=== PATIENT | male | born 1945 | race African-American/Black ===

== ENCOUNTER 2017-06-07 11:59 | Emergency (ER) | payer MEDICARE, MEDICAID ==
[~2017-06-07] VITALS: Ht 177.8 cm; Wt 110.0 kg
[~2017-06-07 11:59] MED LIST: ASPI-1158; BECL8.7A6; CARV3.1242; CLOP75TA15; FURO-152; LISI-186; METF500T; RANI-467; SIMV5TAB2; VIC; [UNRECOGNIZED DRUG - OTHER]
[2017-06-07] MEDS ORDERED: SODIUM CHLORIDE 0.9% 500 ML IV ONE (13:22)
[2017-06-07 17:58] LABS: CLARITY URINE TURBID (CLEAR); COLOR URINE DARK YELLOW (YELLOW); GLUCOSE URINE NEGATIVE (NEGATIVE); KETONES URINE TRACE (NEGATIVE); LEUKOCYTE ESTERASE URINE 3+ (NEGATIVE); NITRITE URINE NEGATIVE (NEGATIVE); OCCULT BLOOD URINE 1+ (NEGATIVE); PROTEIN URINE 1+ (NEGATIVE); SPECIFIC GRAVITY URINE 1.028 (1.005-1.030)
[2017-06-07 18:19] VITALS: BP 86/52
== END 2017-06-07 18:42 | disposition left against medical advice (07) ==
LOC: ER 12:01
DX: I95.9 Hypotension, unspecified (principal); R53.1 Weakness; E11.9 Type 2 diabetes mellitus without complications; J45.909 Unspecified asthma, uncomplicated; I11.0 Hypertensive heart disease with heart failure; Z95.1 Presence of aortocoronary bypass graft; Z95.0 Presence of cardiac pacemaker; Z86.73 Personal history of transient ischemic attack (TIA), and cerebral infarction without residual deficits; Z79.84 Long term (current) use of oral hypoglycemic drugs; Z79.82 Long term (current) use of aspirin
CPT/HCPCS: 51701; 71010; 81001; 93005; 96360; 99285; J7030

== ENCOUNTER 2021-05-06 14:43 | Emergency (ER) | payer MEDICARE, MEDICAID ==
[~2021-05-06] VITALS: Ht 180.3 cm; Wt 93.0 kg
[~2021-05-06 14:43] MED LIST changes: -ASPI-1158; +ASPI-1406; -RANI-467; +RANI-645
[2021-05-06 16:17] LABS: BASOPHILS % 0.8 % (0.0-2.0); HEMATOCRIT. 46.9 % (42.0-52.0); HEMOGLOBIN. 15.2 g/dL (14.0-18.0); MEAN CORPUSCULAR HEMOGLOBIN 27.1 pg (28.0-32.0); MEAN CORPUSCULAR VOLUME 83.4 fL (80.0-94.0); MEAN PLATELET VOLUME 9.5 fl (7.4-10.4); MONOCYTES % 7.5 % (2.0-8.0); NEUTROPHILS % 64.7 % (40.0-76.0); PLATELET 236 x1000/uL (130-400); RED BLOOD CELL COUNT 5.62 mill/uL (4.7-6.1); RED CELL DISTRIBUTION WIDTH 15.6 % (11.6-14.6)
[2021-05-06 16:23] LABS: CHLORIDE 103 mEq/L (98-107)
[2021-05-06 19:20] VITALS: BP 146/104
== END 2021-05-06 19:46 | disposition left against medical advice (07) ==
LOC: ER 14:43
DX: E11.22 Type 2 diabetes mellitus with diabetic chronic kidney disease (principal); I12.9 Hypertensive chronic kidney disease with stage 1 through stage 4 chronic kidney disease, or unspecified chronic kidney disease; N18.9 Chronic kidney disease, unspecified; J45.909 Unspecified asthma, uncomplicated; Z86.73 Personal history of transient ischemic attack (TIA), and cerebral infarction without residual deficits; Z79.899 Other long term (current) drug therapy
CPT/HCPCS: 36415; 74018; 80053; 85025; 93005; 99285

== ENCOUNTER 2021-10-14 18:32 | Inpatient (IN) | payer MEDICARE, MEDICAID ==
[~2021-10-14] VITALS: Ht 172.7 cm; Wt 91.2 kg
[2021-10-14] MEDS ORDERED: SODIUM CHLORIDE 0.9% 1000ML BAG (SEPSIS BOLUS) IV ONE (19:00)
[2021-10-14] MEDS ORDERED: PIPERACILLIN/TAZ 3.375G PREMIX 50 ML IV ONE (19:00)
[2021-10-14] MEDS ORDERED: VANCOMYCIN 1 G PREMIX 200 ML IV ONE (19:00)
[2021-10-14 20:02] LABS: BASOPHILS % 0.7 % (0.0-2.0); EOSINOPHILS % 0.7 % (0.0-5.0); HEMATOCRIT. 50.7 % (42.0-52.0); HEMOGLOBIN. 16.1 g/dL (14.0-18.0); LYMPHOCYTES % 19.4 % (20.0-50.0); MEAN CORPUSCULAR HEMOGLOBIN 26.2 pg (28.0-32.0); MEAN CORPUSCULAR VOLUME 82.6 fL (80.0-94.0); MEAN PLATELET VOLUME 10.1 fl (7.4-10.4); MONOCYTES % 8.4 % (2.0-8.0); NEUTROPHILS % 70.8 % (40.0-76.0); PLATELET 174 x1000/uL (130-400); RED BLOOD CELL COUNT 6.14 mill/uL (4.7-6.1); RED CELL DISTRIBUTION WIDTH 16.6 % (11.6-14.6)
[2021-10-14 20:03] LABS: CHLORIDE 98 mEq/L (98-107)
[2021-10-14] MEDS ORDERED: INSULIN REGULAR (HUMULIN R) 300UNITS/3ML VIAL SUBCUT ONE (21:45)
[2021-10-14] MEDS ORDERED: DOCUSATE SODIUM 100MG CAPSULE PO PRN (22:00)
[2021-10-14] MEDS ORDERED: ACETAMINOPHEN 325MG TABLET PO PRN (22:00)
[2021-10-14] MEDS ORDERED: ONDANSETRON HCL 4MG/2ML INJ IV PRN (22:00)
[2021-10-14] MEDS ORDERED: DEXTROSE 50% WATER 50ML SYRINGE IV PRN (22:00)
[2021-10-14] MEDS ORDERED: ASPIRIN 81MG EC TABLET PO ONE (22:00)
[2021-10-14] MEDS ORDERED: TRAMADOL 50MG TABLET PO PRN (22:15)
[2021-10-14 23:17] LABS: CLARITY URINE CLEAR (CLEAR); COLOR URINE YELLOW (YELLOW); KETONES URINE 1+ (NEGATIVE); LEUKOCYTE ESTERASE URINE NEGATIVE (NEGATIVE); NITRITE URINE NEGATIVE (NEGATIVE); OCCULT BLOOD URINE NEGATIVE (NEGATIVE); PH URINE 5.5 (4.5-8.0); PROTEIN URINE NEGATIVE (NEGATIVE); SPECIFIC GRAVITY URINE 1.035 (1.005-1.030); UROBILINOGEN URINE 0.2 E.U./dL (0.2-1.0)
[2021-10-15] MEDS: BLOOD SUGAR DIAGNOSTIC STRIP TEST SCH ×3 (06:59→21:00)
[2021-10-15] MEDS ORDERED: ASPIRIN 81MG TABLET PO ONE (09:00)
[2021-10-15] MEDS: CLOPIDOGREL 75MG TABLET PO SCH (09:00)
[2021-10-15] MEDS ORDERED: ENOXAPARIN 30MG/0.3ML SYR SUBCUT SCH (09:00)
[2021-10-15 10:45] LABS: BASOPHILS % 1.2 % (0.0-2.0); EOSINOPHILS % 1.5 % (0.0-5.0); HEMATOCRIT. 47.2 % (42.0-52.0); HEMOGLOBIN. 15.3 g/dL (14.0-18.0); LYMPHOCYTES % 25.9 % (20.0-50.0); MEAN CORPUSCULAR HEMOGLOBIN 26.9 pg (28.0-32.0); MEAN CORPUSCULAR VOLUME 82.6 fL (80.0-94.0); MEAN PLATELET VOLUME 10.1 fl (7.4-10.4); NEUTROPHILS % 62.4 % (40.0-76.0); PLATELET 180 x1000/uL (130-400); RED BLOOD CELL COUNT 5.71 mill/uL (4.7-6.1); RED CELL DISTRIBUTION WIDTH 16.6 % (11.6-14.6)
[2021-10-15 10:54] LABS: CHLORIDE 105 mEq/L (98-107)
[2021-10-15 11:04] LABS: LDL CHOLESTEROL 119 mg/dL (5-100)
[2021-10-15 11:07] LABS: HDL CHOLESTEROL 41 mg/dL (40-59)
[2021-10-15 16:10] VITALS: BP 118/57
[2021-10-15] MEDS: INSULIN LISPRO 100 UNITS/ML SUBCUT SCH ×2 (17:23→22:11)
[2021-10-15 20:00] VITALS: BP 110/71
[2021-10-15] MEDS ORDERED: APIXABAN 5 MG TABLET PO SCH (20:00)
[2021-10-15] MEDS: APIXABAN 5 MG TABLET PO SCH (22:10)
[2021-10-15] MEDS: ATORVASTATIN CALCIUM 20MG TABLET PO SCH (22:10)
[2021-10-15] MEDS: INSULIN GLARGINE UD 100 UNITS/ML SYR SUBCUT SCH (22:18)
[2021-10-16] VITALS: BP_SYST 115; BP_SYST 117; BP_SYST 130; BP_DIAS 56; BP_DIAS 57
[2021-10-16 04:00] VITALS: BP_SYST 105; BP_SYST 106; BP_SYST 116; BP_DIAS 63; BP_DIAS 66; BP_DIAS 67
[2021-10-16] MEDS: INSULIN LISPRO 100 UNITS/ML SUBCUT SCH ×4 (06:22→21:01)
[2021-10-16] MEDS: BLOOD SUGAR DIAGNOSTIC STRIP TEST SCH ×4 (06:22→21:01)
[2021-10-16 08:00] VITALS: BP 138/82
[2021-10-16 08:11] LABS: BASOPHILS % 0.5 % (0.0-2.0); EOSINOPHILS % 1.9 % (0.0-5.0); HEMATOCRIT. 46.5 % (42.0-52.0); HEMOGLOBIN. 15.3 g/dL (14.0-18.0); LYMPHOCYTES % 36.1 % (20.0-50.0); MEAN CORPUSCULAR HEMOGLOBIN 27.4 pg (28.0-32.0); MEAN CORPUSCULAR VOLUME 83.3 fL (80.0-94.0); MEAN PLATELET VOLUME 10.7 fl (7.4-10.4); MONOCYTES % 9.6 % (2.0-8.0); NEUTROPHILS % 51.9 % (40.0-76.0); PLATELET 177 x1000/uL (130-400); RED BLOOD CELL COUNT 5.59 mill/uL (4.7-6.1); RED CELL DISTRIBUTION WIDTH 16.6 % (11.6-14.6)
[2021-10-16 08:14] LABS: CHLORIDE 106 mEq/L (98-107)
[2021-10-16] MEDS: CLOPIDOGREL 75MG TABLET PO SCH (09:24)
[2021-10-16] MEDS: APIXABAN 5 MG TABLET PO SCH ×2 (09:24→17:19)
[2021-10-16 12:00] VITALS: BP 134/78
[2021-10-16 16:00] VITALS: BP 122/66
[2021-10-16 17:43] LABS: CREATINE KINASE 55 IU/L (39-308)
[2021-10-16 17:44] LABS: CREATINE KINASE MB FRACTION < 1.0 ng/mL (0.5-3.6)
[2021-10-16 20:00] VITALS: BP 121/61
[2021-10-16] MEDS: CARVEDILOL 3.125 MG TABLET PO SCH (21:00)
[2021-10-16] MEDS: ATORVASTATIN CALCIUM 20MG TABLET PO SCH (21:00)
[2021-10-16] MEDS: INSULIN GLARGINE UD 100 UNITS/ML SYR SUBCUT SCH (21:35)
[2021-10-17] VITALS: BP 109/50
[2021-10-17 04:00] VITALS: BP 95/50
[2021-10-17] MEDS: BLOOD SUGAR DIAGNOSTIC STRIP TEST SCH ×4 (06:10→21:35)
[2021-10-17] MEDS: INSULIN LISPRO 100 UNITS/ML SUBCUT SCH ×4 (06:11→21:34)
[2021-10-17] MEDS: METFORMIN HCL 500MG TABLET PO SCH ×2 (06:21→17:03)
[2021-10-17 07:48] LABS: METHADONE URINE SCREEN NEGATIVE (NEGATIVE); OPIATES URINE SCREEN NEGATIVE (NEGATIVE); PHENCYCLIDINE URINE SCREEN NEGATIVE (NEGATIVE)
[2021-10-17 07:49] LABS: *AMPHETAMINES SCREEN URINE NEGATIVE (NEGATIVE); *BARBITURATES SCREEN URINE NEGATIVE (NEGATIVE); *BENZODIAZEPINES SCREEN URINE NEGATIVE (NEGATIVE); *COCAINE SCREEN URINE NEGATIVE (NEGATIVE)
[2021-10-17 08:00] VITALS: BP 113/67
[2021-10-17] MEDS ORDERED: NITR0.4T SL (08:00)
[2021-10-17] MEDS ORDERED: AMIO100T4 PO (08:00)
[2021-10-17] MEDS ORDERED: DICL100G31 TP (08:00)
[2021-10-17] MEDS ORDERED: FLOV44 INH (08:00)
[2021-10-17] MEDS ORDERED: CHOL2000 PO (08:00)
[2021-10-17] MEDS ORDERED: ATROV INH (08:00)
[2021-10-17] MEDS ORDERED: ALBU18HF2 IH (08:00)
[2021-10-17] MEDS ORDERED: LISI-186 PO (08:00)
[2021-10-17] MEDS ORDERED: FURO-151 PO (08:00)
[2021-10-17] MEDS ORDERED: AMA4 PO (08:00)
[2021-10-17] MEDS ORDERED: ATOR80TA PO (08:00)
[2021-10-17] MEDS ORDERED: HYDR-4135 PO (08:00)
[2021-10-17] MEDS ORDERED: COR25 PO (08:00)
[2021-10-17] MEDS ORDERED: DOCU-138 PO (08:00)
[2021-10-17] MEDS ORDERED: ASPI-1406 PO (08:00)
[2021-10-17] MEDS ORDERED: XAR15 PO (08:00)
[2021-10-17] MEDS ORDERED: TRAM50TA3 PO (08:00)
[2021-10-17 08:02] LABS: CANNABINOID URINE SCREEN PRESUMTIVE POSITIVE (NEGATIVE)
[2021-10-17] MEDS: CLOPIDOGREL 75MG TABLET PO SCH (09:08)
[2021-10-17] MEDS: APIXABAN 5 MG TABLET PO SCH ×2 (09:09→17:03)
[2021-10-17] MEDS: CARVEDILOL 3.125 MG TABLET PO SCH ×2 (09:09→21:00)
[2021-10-17 12:00] VITALS: BP 110/61
[2021-10-17 16:00] VITALS: BP_SYST 110; BP_SYST 111; BP_DIAS 61; BP_DIAS 62
[2021-10-17 17:22] LABS: BASOPHILS % 0.7 % (0.0-2.0); EOSINOPHILS % 1.8 % (0.0-5.0); HEMATOCRIT. 47.9 % (42.0-52.0); HEMOGLOBIN. 15.1 g/dL (14.0-18.0); LYMPHOCYTES % 44.7 % (20.0-50.0); MEAN CORPUSCULAR HEMOGLOBIN 26.9 pg (28.0-32.0); MEAN CORPUSCULAR VOLUME 85.4 fL (80.0-94.0); MONOCYTES % 8.8 % (2.0-8.0); PLATELET 172 x1000/uL (130-400); RED BLOOD CELL COUNT 5.61 mill/uL (4.7-6.1); RED CELL DISTRIBUTION WIDTH 17.8 % (11.6-14.6)
[2021-10-17] MEDS ORDERED: DIGOXIN 125MCG TABLET PO SCH (18:00)
[2021-10-17 20:00] VITALS: BP 90/66
[2021-10-17] MEDS: ATORVASTATIN CALCIUM 20MG TABLET PO SCH (21:33)
[2021-10-17] MEDS: INSULIN GLARGINE UD 100 UNITS/ML SYR SUBCUT SCH (21:34)
[2021-10-18] VITALS: BP 90/55
[2021-10-18 04:00] VITALS: BP 110/59
[2021-10-18] MEDS: BLOOD SUGAR DIAGNOSTIC STRIP TEST SCH ×2 (06:27→11:20)
[2021-10-18] MEDS: INSULIN LISPRO 100 UNITS/ML SUBCUT SCH ×2 (06:27→11:27)
[2021-10-18] MEDS: METFORMIN HCL 500MG TABLET PO SCH (06:28)
[2021-10-18 08:00] VITALS: BP 128/75
[2021-10-18] MEDS: CARVEDILOL 3.125 MG TABLET PO SCH (09:48)
[2021-10-18] MEDS: APIXABAN 5 MG TABLET PO SCH (09:48)
[2021-10-18] MEDS: CLOPIDOGREL 75MG TABLET PO SCH (09:48)
[2021-10-18 12:00] VITALS: BP 111/61
[2021-10-18] MEDS ORDERED: COR3 PO (12:57)
[2021-10-18] MEDS ORDERED: METF-414 PO (12:57)
[2021-10-18] MEDS ORDERED: DIGO-26 PO (12:57)
[2021-10-18] MEDS ORDERED: EMPA10TA MT (12:57)
[2021-10-18 16:00] VITALS: BP 115/62
[2021-10-18 16:14] VITALS: BP 128/75
== END 2021-10-18 17:13 | disposition home or self-care (01) | DRG 314 ==
LOC: ER 18:32 → MICUSO 21:53 → EDBEDREQSVC 21:55 → EDBEDREQTM 21:55 → EDBEDREQ 21:55 → 8WST 10-15 16:10
PROVIDERS: ADMIT Internal Medicine; ATTEND Internal Medicine
DX: I95.9 Hypotension, unspecified (principal); N17.0 Acute kidney failure with tubular necrosis; I48.92 Unspecified atrial flutter; I42.9 Cardiomyopathy, unspecified; I25.10 Atherosclerotic heart disease of native coronary artery without angina pectoris; E11.65 Type 2 diabetes mellitus with hyperglycemia; E78.5 Hyperlipidemia, unspecified; I48.91 Unspecified atrial fibrillation; I50.9 Heart failure, unspecified; I69.344 Monoplegia of lower limb following cerebral infarction affecting left non-dominant side; J45.909 Unspecified asthma, uncomplicated; Z20.822 Contact with and (suspected) exposure to COVID-19; I11.0 Hypertensive heart disease with heart failure; K74.60 Unspecified cirrhosis of liver; M75.31 Calcific tendinitis of right shoulder; Z79.02 Long term (current) use of antithrombotics/antiplatelets; Z79.82 Long term (current) use of aspirin; Z87.891 Personal history of nicotine dependence; Z91.14 Patient's other noncompliance with medication regimen; Z95.1 Presence of aortocoronary bypass graft; Z98.61 Coronary angioplasty status; Z79.01 Long term (current) use of anticoagulants; Z79.84 Long term (current) use of oral hypoglycemic drugs; Z79.899 Other long term (current) drug therapy; Z95.810 Presence of automatic (implantable) cardiac defibrillator
CPT/HCPCS: 36415; 71045; 80048; 80053; 80061; 80305; 81003; 82010; 82550; 82553; 82962; 83036; 83605; 83880; 84145; 84443; 84484; 85025; 87426; 93005; 93306; 93880; 99291; J1650; J1815; J2543; J3370; J7030

== ENCOUNTER 2021-10-20 11:49 | Emergency (ER) | payer MEDICARE, MEDICAID ==
[~2021-10-20] VITALS: Ht 180.3 cm; Wt 90.0 kg
[~2021-10-20 11:49] MED LIST changes: +ALBU18HF2 IH; +AMA4 PO; +AMIO100T4 PO; +ASPI-1406 PO; +ATOR80TA PO; +ATROV INH; +CHOL2000 PO; +COR25 PO; +COR3 PO; +DICL100G31 TP; +DIGO-26 PO; +DOCU-138 PO; +EMPA10TA MT; +FLOV44 INH; +FURO-151 PO; +HYDR-4135 PO; +LISI-186 PO; +METF-414 PO; +NITR0.4T SL; +TRAM50TA3 PO; +XAR15 PO
[2021-10-20 11:58] VITALS: BP 111/62
[2021-10-20 13:12] LABS: EOSINOPHILS % 1.6 % (0.0-5.0); HEMATOCRIT. 47.7 % (42.0-52.0); LYMPHOCYTES % 33.8 % (20.0-50.0); MEAN CORPUSCULAR HEMOGLOBIN 27.4 pg (28.0-32.0); MEAN CORPUSCULAR VOLUME 81.7 fL (80.0-94.0); MEAN PLATELET VOLUME 9.2 fl (7.4-10.4); MONOCYTES % 5.7 % (2.0-8.0); NEUTROPHILS % 57.9 % (40.0-76.0); PLATELET 279 x1000/uL (130-400); RED BLOOD CELL COUNT 5.85 mill/uL (4.7-6.1); RED CELL DISTRIBUTION WIDTH 16.7 % (11.6-14.6)
[2021-10-20 13:19] LABS: CHLORIDE 106 mEq/L (98-107)
[2021-10-20] MEDS ORDERED: LEVOFLOXACIN 250MG TABLET PO ONE (15:15)
[2021-10-20] MEDS ORDERED: LEVO750T46 MT (16:27)
== END 2021-10-20 20:16 | disposition home or self-care (01) ==
LOC: ER 11:49
DX: J18.9 Pneumonia, unspecified organism (principal); I11.0 Hypertensive heart disease with heart failure; I50.9 Heart failure, unspecified; J44.9 Chronic obstructive pulmonary disease, unspecified; E78.00 Pure hypercholesterolemia, unspecified; I25.10 Atherosclerotic heart disease of native coronary artery without angina pectoris; E11.9 Type 2 diabetes mellitus without complications; Z86.73 Personal history of transient ischemic attack (TIA), and cerebral infarction without residual deficits; Z95.0 Presence of cardiac pacemaker; Z79.84 Long term (current) use of oral hypoglycemic drugs; Z79.82 Long term (current) use of aspirin
CPT/HCPCS: 36415; 71045; 80053; 83880; 84484; 85025; 93005; 99285